=== PATIENT | female | born 1940 | race Caucasian/White ===

== ENCOUNTER 2016-10-10 08:39 | Day surgery (SDC) | payer MEDICARE, OTHER ==
[~2016-10-10] VITALS: Ht 154.9 cm; Wt 54.4 kg
== END 2016-10-10 11:15 | disposition short-term general hospital (02) ==
LOC: SURGOP 08:39
PROC: 0DJD8ZZ Inspection of Lower Intestinal Tract, Via Natural or Artificial Opening Endoscopic (ICD-10-PCS; principal; 2016-10-10)
DX: Z12.11 Encounter for screening for malignant neoplasm of colon (principal); E78.5 Hyperlipidemia, unspecified; M85.80 Other specified disorders of bone density and structure, unspecified site; Z86.010 Personal history of colon polyps; Z79.82 Long term (current) use of aspirin; Z79.899 Other long term (current) drug therapy
CPT/HCPCS: 00810; 99100; G0105